=== PATIENT | male | born 1985 | race Caucasian/White ===

== ENCOUNTER 2019-11-01 14:15 | Outpatient (CLI) | payer BC, SELFPAY ==
--- NOTE | ~2019-11-01 | XR_ITS ---
XR lumbar spine 2-3V DATE: 11/01/2019 14:46 INDICATION: Low back pain. No injury. TECHNIQUE: AP, lateral, coned lateral lumbosacral views COMPARISON: None FINDINGS: Normal alignment of the lumbar spine. No fracture or bone destruction. The included lower t horacic and lumbar pedicles are intact. Lumbar and lumbosacral interspaces are well preserved. The sa croiliac joints are normal. IMPRESSION: No significant abnormality Reviewed, dictated and finalized at location A. IMPRESSION: No significant abnormality
--- NOTE | ~2019-11-01 | XR_ITS ---
XR knee RT 3V DATE: 11/01/2019 14:46 INDICATION: Generalized right knee pain TECHNIQUE: 3 views COMPARISON: None FINDINGS: Probable benign fibrous cortical defect of the distal medial left femoral shaft. No fracture or dislocation or joint effusion at the left knee. No periosteal reaction or bone destruc tion. Joint spaces are preserved. No radiopaque intra-articular loose body or chondrocalcinosis. IMPRESSION: Probable benign fibrous cortical defect of the distal medial femoral shaft No significant abnormality of the right knee Reviewed, dictated and finalized at location A. IMPRESSION: Probable benign fibrous cortical defect of the distal medial femora l shaft No significant abnormality of the right knee
== END 2019-11-01 14:16 | disposition home or self-care (01) ==
PROVIDERS: PCP Family Medicine; Visit Provider Physician Assistant
DX: M25.569 Pain in unspecified knee (principal); M54.5 Low back pain
CPT/HCPCS: 72100; 73562

== ENCOUNTER 2019-12-19 15:29 | Outpatient (CLI) | payer BC, SELFPAY ==
--- NOTE | ~2019-12-19 | MR_ITS ---
. EXAMINATION: MR lumbar spine wo con DATE: 12/19/2019 16:34 INDICATION: Lumbar radiculopathy. TECHNIQUE: Magnetic resonance imaging (MRI) of the lumbar spine was performed without intravenous con trast. Sequences included sagittal T2-weighted FSE, sagittal T2-weighted FS FSE, sagittal T1-weighted FSE, and axial T2-weighted FSE. COMPARISON: Lumbar spine radiographs 11/01/2019 FINDINGS: S1 is a transitional segment. Bone alignment is normal. There are Schmorl's nodes from T11- T12 through L1-L2. Intervertebral disc heights are normal. The distal spinal cord signal intensity is normal. The conus medullaris is at L1. Epidural lipomatosis is noted. The following disc levels are specifically discussed: L1-L2: There is a central extrusion. There is mild bilateral facet joint osteoarthritis. There is no neural foraminal stenosis. There is mild central canal stenosis. L2-L3: The disc does not extend beyond the endplate margin. There is mild bilateral facet joint osteo arthritis. There is no neural foraminal stenosis. There is no central canal stenosis. L3-L4: The disc does not extend beyond the endplate margin. There is moderate bilateral facet joint o steoarthritis. There is no neural foraminal stenosis. There is mild central canal stenosis. L4-L5: The disc does not extend beyond the endplate margin. There is moderate bilateral facet joint o steoarthritis. There is mild bilateral neural foraminal stenosis. There is mild central canal stenosi s. L5-S1: There is a right subarticular zone extrusion with mass effect on right S1 nerve root in right lateral recess. There is moderate bilateral facet joint osteoarthritis. There is mild bilateral neura l foraminal stenosis. There is mild central canal stenosis. IMPRESSION: 1. Mild lumbar spondylosis. Of note, an extrusion at L5-S1 exerts mass effect on right S1 nerve root. Reviewed, dictated and finalized at location A. IMPRESSION: 1. Mild lumbar spondylosis. Of note, an extrusion at L5-S1 exerts mass effect o n right S1 nerve root.
== END 2019-12-19 15:30 | disposition home or self-care (01) ==
PROVIDERS: PCP Family Medicine; Visit Provider Physician Assistant
DX: M47.26 Other spondylosis with radiculopathy, lumbar region (principal)
CPT/HCPCS: 72148

== ENCOUNTER 2020-05-30 13:31 | Outpatient (CLI) | payer BC, SELFPAY ==
--- NOTE | ~2020-05-30 | MR_ITS ---
EXAMINATION: MR knee RT wo con DATE: 05/30/2020 14:34 INDICATION: Right knee pain. TECHNIQUE: Magnetic resonance imaging (MRI) of the right knee was performed without intravenous contr ast. Sequences included axial PD-weighted FS FSE, coronal PD-weighted FSE and PD-weighted FS FSE, sag ittal PD-weighted FSE, and sagittal T2-weighted FS FSE. COMPARISON: Right knee radiographs 04/08/2020 FINDINGS: Medial compartment: Medial meniscus is normal. Medial compartment cartilage is normal. Lateral compartment: Lateral meniscus is normal. Lateral compartment cartilage is normal. Patellofemoral compartment: Patellar cartilage is normal. Trochlear cartilage is normal. Ligaments and tendons: The anterior and posterior cruciate ligaments are normal. Medial collateral ligament and lateral robin ateral ligament complex are normal. There is mild patellar tendinopathy. Fluid: There is a small knee joint effusion. There are numerous masses in the joint capsule and in the soft tissues abutting the synovium. The masses demonstrate mixed increased and decreased signal on PD-weig hted images. For example, there is a 2.3 cm mass posterior to femoral metaphysis. IMPRESSION: 1. Small knee joint effusion with numerous masses abutting the synovium, most likely pigmented villon odular synovitis. Reviewed, dictated and finalized at location A. [employer] IMPRESSION: 1. Small knee joint effusion with numerous masses abutting the synovium, most l ikely pigmented villonodular synovitis.
== END 2020-05-30 13:32 | disposition home or self-care (01) ==
PROVIDERS: PCP Family Medicine; Visit Provider Orthopaedic Surgery
DX: M25.561 Pain in right knee (principal); M25.461 Effusion, right knee
CPT/HCPCS: 73721

== ENCOUNTER 2021-03-18 08:40 | Outpatient (CLI) | payer BC, SELFPAY ==
--- NOTE | 2021-03-18 08:57 | ECHO_ITS ---
Patient Info Name: Rehan Kemp Age: 35 years : 1985 Gender: Male Ht: 71 in Wt: 390 lbs BSA: 3.08 m2 HR: 82 bpm BP: 169 / 116 mmHg Technical Quality: Good Exam Date: 03/18/2021 9:03 AM Exam Location: [facility] Patient Status: Outpatient Admit Date: 03/18/2021 Staff Ordering Physician: Michael Bowen PA-C Screw Machine Hand: May Aldana RDCS Attending Provider: Michael Bowen PA-C Referring Physician: Andrés HUDSON; Exam Type: CA echo doppler color flow Study Info Indications R94.31 - Abnormal electrocardiogram ECG EKG Complete two-dimensional, color flow and Doppler transthoracic echocardiogram is performed. Summary 1. Complete two-dimensional, color flow and Doppler transthoracic echocardiogram is performed. 2. Left ventricular chamber dimension is normal. 3. Left ventricular systolic function is normal, estimated at 60-65%. 4. There is mildly increased left ventricular wall thickness. 5. The left ventricular diastolic function is grade II diastolic dysfunction. 6. E/e' 7 is not elevated. 7. Global longitudinal strain is slightly abnormal at -16.7%. 8. There is trace mitral valve regurgitation. 9. Mild pulmonary hypertension, estimated pulmonary arterial systolic pressure is 40 mmHg. 10. Normal inferior vena cava with <50% collapse upon inspiration consistent with elevated right atrial pressure, 10 mmHg. Left Ventricle E/e' 7 is not elevated. Global longitudinal strain is slightly abnormal at -16.7%. Left ventricular chamber dimension is normal. Left ventricular systolic function is normal, estimated at 60-65%. There is mildly increased left ventricular wall thickness. The left ventricular diastolic function is grade II diastolic dysfunction. Right Ventricle Right ventricular chamber dimension is normal. Right ventricular systolic function is normal. Left Atria Left atrial chamber dimension is normal. Right Atria Right atrial chamber dimension is normal. Aortic Valve The aortic valve is trileaflet. There is no aortic valve stenosis. There is no aortic valve regurgitation. Pulmonic Valve There is no pulmonic regurgitation. Mitral Valve There is no mitral valve stenosis. There is trace mitral valve regurgitation. Tricuspid Valve There is no tricuspid valve regurgitation. Mild pulmonary hypertension, estimated pulmonary arterial systolic pressure is 40 mmHg. Pericardium/Pleural There is no pericardial effusion. Inferior Vena Cava Normal inferior vena cava with <50% collapse upon inspiration consistent with elevated right atrial pressure, 10 mmHg. Aorta The aortic root size at the sinus of Valsalva is normal. Left Ventricular Outflow Tract Name Value Normal LVOT 2D LVOT Diameter 2.2 cm LVOT Doppler LVOT Peak Gradient 4 mmHg LVOT Mean Gradient 3 mmHg LVOT VTI 22 cm LVOT VTI/AV VTI Ratio 1.1 LVOT Stroke Volume 82 ml LVOT CO 6.5 l/min LVOT CI
== END 2021-03-18 08:41 | disposition home or self-care (01) ==
LOC: ANHCARD 08:43
PROVIDERS: PCP Family Medicine; Visit Provider Physician Assistant
DX: R94.31 Abnormal electrocardiogram [ECG] [EKG] (principal); I27.20 Pulmonary hypertension, unspecified
CPT/HCPCS: 93306